=== PATIENT | female | born 1935 | race Caucasian/White ===

== ENCOUNTER 2017-08-08 14:13 | Inpatient (IN) | payer MEDICARE ==
[~2017-08-08] VITALS: Ht 147.3 cm; Wt 38.6 kg
[2017-08-08] MEDS ORDERED: IV NORMAL SALINE 1000 ML BAG IV ONE (14:30)
[2017-08-08] MEDS ORDERED: BUDE10.2 INH (14:41)
[2017-08-08 14:59] LABS: BASOPHILS # (AUTO) 0.1 K/uL (0.0-8.0); BASOPHILS % (AUTO) 1.9 % (0.0-2.0); EOSINOPHILS # (AUTO) 0.5 K/uL (0.0-0.7); EOSINOPHILS % (AUTO) 11.9 % (0.0-7.0); HEMATOCRIT 36.9 % (31.2-41.9); HEMOGLOBIN 12.4 g/dL (10.9-14.3); LYMPHOCYTES # (AUTO) 1.3 K/uL (20.0-40.0); LYMPHOCYTES % (AUTO) 32.7 % (20.5-51.5); MEAN CORPUSCULAR HEMOGLOBIN 31.5 uug (24.7-32.8); MEAN CORPUSCULAR HGB CONC 34 g/dL (32.3-35.6); MEAN CORPUSCULAR VOLUME 93.4 fL (75.5-95.3); MONOCYTES # (AUTO) 0.3 K/uL (2.0-10.0); MONOCYTES % (AUTO) 7.7 % (0.0-11.0); NEUTROPHILS # (AUTO) 1.8 K/uL (1.8-8.9); NEUTROPHILS % (AUTO) 45.8 % (38.5-71.5); PLATELET COUNT (AUTO) 273 K/uL (179-408); RED BLOOD CELL COUNT(AUTO) 3.94 MIL/uL (3.63-4.92); WHITE BLOOD COUNT (AUTO) 3.9 K/uL (3.8-11.8)
[2017-08-08 15:10] LABS: CARBON DIOXIDE 32 mmol/L (21-32); CHLORIDE 102 mmol/L (98-107); CREATININE 0.7 mg/dL (0.6-1.3); GLUCOSE 98 mg/dL (74-106); POTASSIUM 3.6 mmol/L (3.5-5.1); UREA NITROGEN, BLOOD 14 mg/dL (7-18)
[2017-08-08 15:16] LABS: ALANINE AMINOTRANSFERASE 190 U/L (14-59); ALKALINE PHOSPHATASE 18 U/L (50-136); ASPARTATE AMINOTRANSFERASE 211 U/L (15-37); BILIRUBIN,DIRECT 0.4 mg/dL (0.0-0.2); BILIRUBIN,TOTAL 1.1 mg/dL (0.2-1.0); LIPASE 145 U/L (73-393); TOTAL PROTEIN, SERUM 7.1 g/dL (6.4-8.2)
--- NOTE | 2017-08-08 15:17 | NUR ---
MEDICATION INFO OBTAINED FROM PARAMEDICS.
--- NOTE | 2017-08-08 15:27 | NUR ---
Per Dr. Gomez pt to be admitted to tele, called tele floor for bed assignment, charge nurse to call back.
[2017-08-08 15:35] LABS: *BLOOD, URINE NEGATIVE (NEGATIVE); *CLARITY,URINE SLIGHTLY CLOUDY (CLEAR); *COLOR,URINE DARK YELLOW (YELLOW); *KETONES,URINE TRACE (NEGATIVE); *PROTEIN,URINE NEGATIVE (NEGATIVE); *UROBILINOGEN,URINE 0.2 E.U./dl (NORMAL); LEUKOCYTE ESTERASE ,URINE 1+ (NEGATIVE); NITRITE, URINE POSITIVE (NEGATIVE); PH,URINE 5.5 (5.0-8.0); UGLUCOSE NEGATIVE (NEGATIVE)
[2017-08-08 15:37] LABS: *BILIRUBIN,URIN 1+ (NEGATIVE)
[2017-08-08 15:41] LABS: BACTERIA,URINE MANY /HPF (NONE SEEN); RBC,URINE 0-3 /HPF (0-3); SQUAMOUS EPITHELIAL CELL,UR FEW /HPF (NONE SEEN); WBC,URINE 20-50 /HPF (0-3)
--- NOTE | 2017-08-08 15:49 | NUR ---
DR ZENG CALLED PATIENT WAS ACCEPTED.
--- NOTE | 2017-08-08 16:00 | NUR ---
PATIENT TAKEN BY LAURA FOR CT. WILL TAKE PATIENT UP TO FLOOR AFTER TEST.
[2017-08-08] MEDS ORDERED: PANT40TA4 PO ×2 (16:14→18:54)
[2017-08-08] MEDS ORDERED: HYDR-3972 PO (16:14)
[2017-08-08] MEDS ORDERED: SIMV40TA5 PO ×2 (16:14→18:56)
[2017-08-08] MEDS ORDERED: ONDA4TAB10 PO (16:14)
[2017-08-08] MEDS ORDERED: CLOP75TA33 PO (16:14)
[2017-08-08] MEDS ORDERED: ZINC220T PO (16:14)
[2017-08-08] MEDS ORDERED: LATA2.5D7 EACHEYE (16:14)
[2017-08-08] MEDS ORDERED: BRIM5DRO3 EACHEYE (16:14)
[2017-08-08] MEDS ORDERED: FURO20TA4 PO (16:14)
[2017-08-08] MEDS ORDERED: ASCO500T10 PO (16:14)
[2017-08-08] MEDS ORDERED: IPRA3AMP IH (16:14)
[2017-08-08] MEDS ORDERED: MEGE400O2 PO (16:14)
[2017-08-08] MEDS ORDERED: RANO500T3 PO (16:14)
--- NOTE | 2017-08-08 16:40 | NUR ---
RECEIVED PATIENT FROM CT/ER, PHYSICAL ASSESSMENT REVEALED SACRAL WOUND/AND RED HEELS. PATIENT HAS MANY BONY PROMINCES AND THEY HAVE BEEN PROTECTED WITH MEPILEX. PATIENT PLACED IN BED, WITH 2 SIDE RAILS UP, BED IN LOW POSITION, AND BED ALARM ON. ALL BELONGINGS HAVE BEEN ACCOUNTED FOR AND PATIENT PLACED ON TELE MONITOR SINUS RHYTHM
[2017-08-08] MEDS ORDERED: IV NS 1000 ML 1,000 ML IV PRN (17:04)
[2017-08-08] MEDS ORDERED: Z GUARD REMEDY PASTE 57 GM TUBE TOP PRN (17:15)
[2017-08-08] MEDS ORDERED: HYDROCODONE/APAP 5-325MG TABLET PO PRN (17:15)
[2017-08-08] MEDS ORDERED: MAGNESIUM HYDROXIDE 30 ML LIQUID UDC PO PRN (17:15)
[2017-08-08] MEDS ORDERED: ONDANSETRON 4 MG/2 ML VIAL IV PRN (17:15)
[2017-08-08] MEDS ORDERED: ACETAMINOPHEN 325 MG TABLET PO PRN (17:15)
[2017-08-08] MEDS ORDERED: ONDANSETRON HCL 4 MG TABLET PO PRN (17:15)
[2017-08-08] MEDS ORDERED: ZOLPIDEM 5 MG TABLET PO PRN (17:15)
[2017-08-08 17:31] VITALS: BP 106/55
[2017-08-08] MEDS ORDERED: ALBUTEROL SULFATE 2.5 MG/3 ML NEBU NEB PRN (17:45)
--- NOTE | 2017-08-08 18:00 | NUR ---
PATIENT COUGHING ON FOOD, FLUIDS WERE THICKENED, AND ORDERS FOR A PUREE DIET PLACED IF TOLERATED, PATIENT WILL HAVE A SWALLOW EVAL. TOMORROW, AND FLUID ORDERS CHANGED TO D51/2 NS.
[2017-08-08] MEDS ORDERED: FERR325T28 PO (18:53)
[2017-08-08] MEDS ORDERED: MULT1TAB73 PO (18:54)
[2017-08-08] MEDS ORDERED: AMIN887L PO (18:55)
[2017-08-08] MEDS ORDERED: ZINC220C6 PO (18:56)
[2017-08-08] MEDS ORDERED: HYDR-3326 PO (18:57)
[2017-08-08] MEDS ORDERED: ONDA4TAB5 PO (18:58)
--- NOTE | 2017-08-08 19:30 | NUR ---
PT RECEIVED IN BED, AWAKE. A/OX2. ABLE TO MAKE NEEDS KNOWN. V/S STABLE. IN NO ACUTE DISTRESS. NO C/O PAIN AT THIS TIME. IVF INFUSING. ON 2LNC, TOLERATING WELL. AFEBRILE. HOB ELEVATED. OFFLOADING SACRAL REGION, MEPELEX IN PLACE. SAFETY MEASURES IMPLEMENTED. BED ALARM SET. CALL LIGHT WITHIN REACH.
--- NOTE | 2017-08-08 19:31 | NUR ---
PT 83 SINUS RHYTHM ON THE TELE MONITOR.
[2017-08-08 20:18] VITALS: BP 112/56
[2017-08-08] MEDS: SIMVASTATIN 20 MG TABLET PO SCH ×2 (20:33→20:42)
[2017-08-08] MEDS: RANOLAZINE 500 MG TAB.ER.12H PO SCH ×2 (20:33→20:42)
[2017-08-08] MEDS: MEGESTROL ACETATE 400 MG/10 ML LIQUID UDC PO SCH ×2 (20:33→20:42)
[2017-08-08] MEDS: Z GUARD REMEDY PASTE 57 GM TUBE TOP SCH (20:34)
[2017-08-08] MEDS: IV D5 1/2 NS 1000 ML 1,000 ML IV PRN (20:34)
--- NOTE | 2017-08-08 20:40 | NUR ---
PT REFUSES MEDICATIONS AT THIS TIME. ANGRY UPON APPROACH. STATES IF SHE TALKS SHE CHOKES AND DOES NOT NEED THE MEDICATIONS AT THIS TIME.
--- NOTE | 2017-08-08 23:30 | NUR ---
Received report from Malinda MOSELEY. Pt observed to be sleeping at this time. IVF running as ordered. Tele noted to be sinus rhythm with HR in the 80's. Bed in low, locked position with bed alarm on. Call light within reach. Will continue to monitor closely.
[2017-08-09 04:00] VITALS: BP 108/43
--- NOTE | 2017-08-09 06:00 | NUR ---
Pt stable throughout the night. No s/s of distress at this time. Nicole care, back care provided. Able to make needs known. Will endorse accordingly.
[2017-08-09 06:24] LABS: BASOPHILS # (AUTO) 0.1 K/uL (0.0-8.0); BASOPHILS % (AUTO) 2.2 % (0.0-2.0); EOSINOPHILS # (AUTO) 0.5 K/uL (0.0-0.7); EOSINOPHILS % (AUTO) 14.7 % (0.0-7.0); HEMATOCRIT 29.7 % (31.2-41.9); HEMOGLOBIN 10.2 g/dL (10.9-14.3); LYMPHOCYTES # (AUTO) 1.1 K/uL (20.0-40.0); MEAN CORPUSCULAR HEMOGLOBIN 32.1 uug (24.7-32.8); MEAN CORPUSCULAR HGB CONC 34 g/dL (32.3-35.6); MEAN CORPUSCULAR VOLUME 93.6 fL (75.5-95.3); MONOCYTES # (AUTO) 0.4 K/uL (2.0-10.0); MONOCYTES % (AUTO) 12.1 % (0.0-11.0); NEUTROPHILS # (AUTO) 1.4 K/uL (1.8-8.9); PLATELET COUNT (AUTO) 187 K/uL (179-408); RED BLOOD CELL COUNT(AUTO) 3.17 MIL/uL (3.63-4.92); WHITE BLOOD COUNT (AUTO) 3.4 K/uL (3.8-11.8)
[2017-08-09 06:44] LABS: ALANINE AMINOTRANSFERASE 134 U/L (14-59); ALKALINE PHOSPHATASE 13 U/L (50-136); ASPARTATE AMINOTRANSFERASE 155 U/L (15-37); BILIRUBIN,DIRECT 0.3 mg/dL (0.0-0.2); BILIRUBIN,TOTAL 0.9 mg/dL (0.2-1.0); CARBON DIOXIDE 29 mmol/L (21-32); CHLORIDE 106 mmol/L (98-107); CREATININE 0.7 mg/dL (0.6-1.3); GLUCOSE 103 mg/dL (74-106); MAGNESIUM 1.4 mg/dL (1.8-2.4); PHOSPHOROUS 3.4 mg/dL (2.5-4.9); POTASSIUM 3.4 mmol/L (3.5-5.1); TOTAL PROTEIN, SERUM 5.3 g/dL (6.4-8.2); UREA NITROGEN, BLOOD 9 mg/dL (7-18)
[2017-08-09] MEDS: PANTOPRAZOLE SODIUM 40 MG TABLET.DR PO SCH (07:41)
--- NOTE | 2017-08-09 08:00 | NUR ---
Discussed plan of care with patient re: thickening her fluids to prevent aspiration, fall precautions, and pain management. Pt agreeable with plan of care. PT alert and orient. PT [place] . Awaiting wound care consult, first step , swallow eval for today. Discussed test and procedures with patient.
[2017-08-09] MEDS: ZINC SULFATE 220 MG CAPSULE PO SCH (08:21)
[2017-08-09] MEDS: BRIMONIDINE 0.2% OPHT DROP 10 ML BOTTLE EACHEYE SCH (08:21)
[2017-08-09] MEDS: ASCORBIC ACID 500 MG TABLET PO SCH (08:21)
[2017-08-09] MEDS: MEGESTROL ACETATE 400 MG/10 ML LIQUID UDC PO SCH ×2 (08:21→20:37)
[2017-08-09] MEDS: RANOLAZINE 500 MG TAB.ER.12H PO SCH ×2 (08:21→20:37)
[2017-08-09] MEDS: CLOPIDOGREL 75 MG TABLET PO SCH (08:21)
[2017-08-09] MEDS: Z GUARD REMEDY PASTE 57 GM TUBE TOP SCH ×2 (08:23→20:37)
[2017-08-09] MEDS ORDERED: BRIMONIDINE-P 0.1% OPHTH DROP 5 ML DROPS EACHEYE SCH (09:00)
[2017-08-09 10:52] LABS: THYROID STIMULATING HORMONE 2.671 mIU/mL (0.358-3.740)
[2017-08-09] MEDS: CEFTRIAXONE 1 G in IV DEXTROSE 5% 50 ML IV SCH (10:56)
[2017-08-09 11:12] VITALS: BP 106/56
[2017-08-09] MEDS ORDERED: POTASSIUM CHLORIDE 20 MEQ TAB.PRT.SR PO ONE (13:45)
--- NOTE | 2017-08-09 13:49 | NUR ---
WOUND CARE CONSULT: PT PRESENTS WITH STAGE 2 ULCERS TO SACRUM AND RT BUTTOCK WITH SURROUNDING SCARRING, PRESENT ON ADMISSION. PT IS CACHECTIC. ALL SKIN PROTECTION AND WOUND CARE RECOMMENDATIONS DISCUSSED WITH NURSING STAFF. PT ON FIRST STEP MATTRESS. DIETARY CONSULT IN PLACE. WILL SEE PRN. ESCOBAR IN AGREEMENT WITH PLAN OF CARE. Addendum: 08/09/17 at 1351 by KSENIA GARCIA RN Amended: Links added.
[2017-08-09] MEDS: MAGNESIUM SULFATE/D5W 100 ML IV SCH ×4 (14:12→17:49)
[2017-08-09 15:13] VITALS: BP 102/47
[2017-08-09] MEDS ORDERED: GUAIFENESIN/DEXTROMETHORPHAN 5 ML UDC PO PRN (17:45)
--- NOTE | 2017-08-09 18:34 | NUR ---
First step applied, wound care nurse saw pt aware of recommendations,. swallow eval recommend puree and thickened liquids. PT non compliant with thickened liquids. pt states that she hates the thickener. Discussed with pt risk of not having thickener on her liquids pt verbalized understanding but remains non compliant. PT is in no acute distress. Call light is within reach. IV on left ac intact.
[2017-08-09 19:33] VITALS: BP 94/44
[2017-08-09] MEDS: SIMVASTATIN 20 MG TABLET PO SCH (20:37)
[2017-08-09] MEDS ORDERED: SIMVASTATIN 40 MG TABLET PO SCH (21:00)
[2017-08-09] MEDS ORDERED: LATANOPROST OPHT DROP 2.5 ML BOTTLE EACHEYE SCH (21:00)
[2017-08-10] MEDS: IV D5 1/2 NS 1000 ML 1,000 ML IV PRN ×2 (00:11→13:47)
[2017-08-10 04:00] VITALS: BP 103/47
--- NOTE | 2017-08-10 05:55 | NUR ---
PATIENT ASLEEP IN BED. EASILY AROUSABLE. REPOSITIONED TO SIDE. SLEPT WELL. NO RESP. DISTRESS NOTED. BED ALARM ON. CALL LIGHT IN REACH. ALL NEEDS ATTENDED. WILL CONTINUE TO MONITOR.
[2017-08-10] MEDS: PANTOPRAZOLE SODIUM 40 MG TABLET.DR PO SCH (06:19)
[2017-08-10 06:36] LABS: BASOPHILS # (AUTO) 0.1 K/uL (0.0-8.0); EOSINOPHILS # (AUTO) 0.5 K/uL (0.0-0.7); EOSINOPHILS % (AUTO) 14.5 % (0.0-7.0); HEMATOCRIT 30.5 % (31.2-41.9); HEMOGLOBIN 10.4 g/dL (10.9-14.3); LYMPHOCYTES # (AUTO) 0.8 K/uL (20.0-40.0); LYMPHOCYTES % (AUTO) 24.9 % (20.5-51.5); MEAN CORPUSCULAR HEMOGLOBIN 31.8 uug (24.7-32.8); MEAN CORPUSCULAR HGB CONC 34 g/dL (32.3-35.6); MEAN CORPUSCULAR VOLUME 92.9 fL (75.5-95.3); MONOCYTES # (AUTO) 0.3 K/uL (2.0-10.0); MONOCYTES % (AUTO) 10.5 % (0.0-11.0); NEUTROPHILS # (AUTO) 1.6 K/uL (1.8-8.9); NEUTROPHILS % (AUTO) 48.1 % (38.5-71.5); PLATELET COUNT (AUTO) 189 K/uL (179-408); RED BLOOD CELL COUNT(AUTO) 3.28 MIL/uL (3.63-4.92); WHITE BLOOD COUNT (AUTO) 3.2 K/uL (3.8-11.8)
[2017-08-10 06:55] LABS: ALANINE AMINOTRANSFERASE 119 U/L (14-59); ALKALINE PHOSPHATASE 14 U/L (50-136); ASPARTATE AMINOTRANSFERASE 125 U/L (15-37); BILIRUBIN,TOTAL 0.7 mg/dL (0.2-1.0); CARBON DIOXIDE 31 mmol/L (21-32); CHLORIDE 103 mmol/L (98-107); CREATININE 0.7 mg/dL (0.6-1.3); GLUCOSE 102 mg/dL (74-106); PHOSPHOROUS 3.1 mg/dL (2.5-4.9); POTASSIUM 3.6 mmol/L (3.5-5.1); TOTAL PROTEIN, SERUM 5.4 g/dL (6.4-8.2); UREA NITROGEN, BLOOD 9 mg/dL (7-18)
[2017-08-10] MEDS: BRIMONIDINE 0.2% OPHT DROP 10 ML BOTTLE EACHEYE SCH (08:22)
[2017-08-10] MEDS: Z GUARD REMEDY PASTE 57 GM TUBE TOP SCH (08:22)
[2017-08-10] MEDS: ZINC SULFATE 220 MG CAPSULE PO SCH (08:23)
[2017-08-10] MEDS: ASCORBIC ACID 500 MG TABLET PO SCH (08:23)
[2017-08-10] MEDS: CLOPIDOGREL 75 MG TABLET PO SCH (08:23)
[2017-08-10] MEDS: MEGESTROL ACETATE 400 MG/10 ML LIQUID UDC PO SCH (08:23)
[2017-08-10] MEDS: RANOLAZINE 500 MG TAB.ER.12H PO SCH (08:23)
--- NOTE | 2017-08-10 08:30 | NUR ---
AWAKE ORTX3 NO PAIN OR SOB ON FALL /ASPIRATION PRECAUTION BED ALARM ON AND CALL LIGHT WITHIN REACH AND INSTRUCTION TO CALL WHEN NEEDED
[2017-08-10] MEDS: CEFTRIAXONE 1 G in IV DEXTROSE 5% 50 ML IV SCH (10:34)
[2017-08-10 11:34] VITALS: BP 136/55
--- NOTE | 2017-08-10 12:00 | NUR ---
FAMILY SON AT BEDSIDE EAT LUNCH MOD AMT NO PAIN OR SOB D/C PLANNING BACK TO SNF EXPLAINED TO PATIENT SON CHAZ ROSE
[2017-08-10 15:13] VITALS: BP 96/52
[2017-08-10] MEDS ORDERED: ENSURE ENLIVE (VAN) 240 ML LIQUID PO SCH (17:00)
--- NOTE | 2017-08-10 17:00 | NUR ---
D/C INSTRUCTION REGARDING D/C TO SNF 4 SEASON WITH ORDER EXPLAINED TO PATIENT REGARDING F/U WITH PMD CONTINUE HOME MEDICINE ORDER AND EDUCATION PK GAVE ,UNDERSTAND AND SIGNS HL KEEP WITH PATIENT BECAUSE NEED TO CONTINUE IVPB AT SNF AND REPORT GIVEN TO NURSE "MAKEDA" VIA TEL
[2017-08-10] MEDS ORDERED: ZOLP5TAB8 PO (17:20)
[2017-08-10] MEDS ORDERED: MEGE400O4 PO (17:20)
[2017-08-10] MEDS ORDERED: CEFT1VIA15 IV (17:20)
[2017-08-10] MEDS ORDERED: Lactose-Free Food PO (17:20)
--- NOTE | 2017-08-10 17:45 | NUR ---
D/C TO SNF VIA AMBULANCE WITH HER BELONGING CONDITION STABLE
== END 2017-08-10 17:45 | DRG 689 ==
LOC: ER 14:16 → TELE 16:26 → MED 08-09 07:55
PROVIDERS: ADMIT Internal Medicine; ATTEND Internal Medicine
DX: N39.0 Urinary tract infection, site not specified (principal); E43 Unspecified severe protein-calorie malnutrition; G92 Toxic encephalopathy; L89.152 Pressure ulcer of sacral region, stage 2; L89.312 Pressure ulcer of right buttock, stage 2; J44.0 Chronic obstructive pulmonary disease with (acute) lower respiratory infection; D64.9 Anemia, unspecified; J21.9 Acute bronchiolitis, unspecified; Z68.1 Body mass index [BMI] 19.9 or less, adult; E83.42 Hypomagnesemia; D71 Functional disorders of polymorphonuclear neutrophils; R91.1 Solitary pulmonary nodule; E78.5 Hyperlipidemia, unspecified; K21.9 Gastro-esophageal reflux disease without esophagitis; I25.10 Atherosclerotic heart disease of native coronary artery without angina pectoris; J44.9 Chronic obstructive pulmonary disease, unspecified; K44.9 Diaphragmatic hernia without obstruction or gangrene; E87.6 Hypokalemia; H40.9 Unspecified glaucoma; B96.20 Unspecified Escherichia coli [E. coli] as the cause of diseases classified elsewhere; R74.0 Nonspecific elevation of levels of transaminase and lactic acid dehydrogenase [LDH]; R94.31 Abnormal electrocardiogram [ECG] [EKG]
CPT/HCPCS: 36415; 70030-TC; 71045; 71250; 76700; 83550; 83605; 83690; 83735; 84100; 84443; 85025; 85730; 87040; 87077; 87086; 92523; 92526; 93005; 97110; 97165; 97530; A4663; C1758; J0696; J2405; J3475; J3490; J7030; J7060; J8999